=== PATIENT | female | born 1960 | race Two or more races ===

== ENCOUNTER 2023-12-30 11:51 | Emergency (ER) | payer OTHER ==
[~2023-12-30] VITALS: Ht 162.6 cm; Wt 63.0 kg
[2023-12-30] MEDS ORDERED: COZAAR25 MG PO (12:09)
[2023-12-30] MEDS ORDERED: GLUMETZA500 MG PO (12:09)
[2023-12-30] MEDS ORDERED: ACIDOPHILUS1 EAC3 PO (12:10)
[2023-12-30] MEDS ORDERED: KETOROLAC TROMETHAMINE 15 MG VIAL IV STA (12:42)
[2023-12-30] MEDS ORDERED: DEXAMETHASONE SODIUM PHOSPHATE 4 MG/ML VIAL IV STA (12:42)
[2023-12-30] MEDS ORDERED: DEXAMETHASONE SODIUM PHOSPHATE 4 MG/ML VIAL ONE (12:52)
[2023-12-30] MEDS ORDERED: KETOROLAC TROMETHAMINE 30 MG VIAL ONE (12:52)
[2023-12-30] MEDS ORDERED: NORFLEX100MG PO (14:56)
[2023-12-30] MEDS ORDERED: KETO10TA2 PO (14:56)
[2023-12-30] MEDS ORDERED: TRAMADOL HCL50 MG PO (14:56)
== END 2023-12-30 15:11 | disposition home or self-care (01) ==
LOC: ER 11:52
DX: S83.8X2A Sprain of other specified parts of left knee, initial encounter (principal); X58.XXXA Exposure to other specified factors, initial encounter; Y93.89 Activity, other specified; Y92.89 Other specified places as the place of occurrence of the external cause; Y99.8 Other external cause status; I10 Essential (primary) hypertension; E11.9 Type 2 diabetes mellitus without complications; Z88.1 Allergy status to other antibiotic agents; Z88.6 Allergy status to analgesic agent
CPT/HCPCS: 29505; 73564; 96365; 99283; J1100; J1885